=== PATIENT | male | born 1990 | race Caucasian/White ===

== ENCOUNTER 2019-04-25 15:44 | Inpatient (IN) | payer OTHER ==
[~2019-04-25] VITALS: Ht 177.8 cm; Wt 85.5 kg
[~2019-04-25 15:44] MED LIST: ZOFRAN ODT4 MG SL
[2019-04-25 17:18] LABS: HEMATOCRIT 47.8 % (39.0-50.0); HEMOGLOBIN 16.1 g/dl (14.0-18.0); IMMATURE GRANULOCYTES 0.4 % (0.0-5.0); MEAN CELL VOLUME 86.8 fL CALC (80.0-100.0); MEAN CORPUSCULAR HGB 29.2 pG CALC (26.0-32.0); MEAN CORPUSCULAR HGB CONC 33.7 g/L CALC (32.0-36.0); NEUT# 12.53 thou/uL (1.82-7.42); RED BLOOD COUNT 5.51 mill/uL (4.70-6.10); RED CELL DISTRI WIDTH 11.8 % (11.5-15.5)
[2019-04-25 17:36] LABS: ALBUMIN 4.9 g/dL (3.2-5.0); ALKALINE PHOSPHATASE 74 u/l (38-126); BUN 37 mg/dL (9-20); BUN/CREATININE RATIO 32 (12-20 (CALC)); CHLORIDE 94 mmol/l (95-108); CREATININE 1.1 mg/dL (0.7-1.3); ETHYL ALCOHOL 0 mg/dl (0-30); GFR > 60 ML/MIN (>=60 (CALC)); GFR FOR AFR.AMER. > 60 ML/MIN (>=60 (CALC)); POTASSIUM 4.7 mmol/l (3.5-5.1); TOTAL PROTEIN 8.3 g/dL (6.3-8.2)
[2019-04-25 17:37] LABS: ANION GAP 22 (6-22 (CALC)); BILIRUBIN, TOTAL 2.6 mg/dL (0.0-1.4); CARBON DIOXIDE 21 mmol/l (22-30); SGOT/AST 650 u/l (17-59); SODIUM 132 mmol/l (137-146)
[2019-04-25 21:04] LABS: URINE BILIRUBIN - DIPSTICK NEGATIVE (NEGATIVE); URINE BLOOD DIPSTICK MODERATE (NEGATIVE); URINE COLOR YELLOW; URINE GLUCOSE - DIPSTICK NEGATIVE (NEGATIVE); URINE KETONE 15 mg/dL (NEGATIVE); URINE LEUK ESTERASE NEGATIVE (NEGATIVE); URINE NITRITE - DIPSTICK NEGATIVE (Negative); URINE PH 5.5 (4.5-8.0); URINE PROTEIN - DIPSTICK NEGATIVE (NEG-TRACE); URINE UROBILINOGEN - DIPSTICK 0.2 E.U./dL (0.2)
[2019-04-25 21:07] LABS: BARBITURATES NEGATIVE (NEGATIVE); COCAINE NEGATIVE (NEGATIVE); METHADONE NEGATIVE (NEGATIVE); OXCYCODONE NEGATIVE (NEGATIVE); TETRAHYDROCANNABIONOL NEGATIVE (NEGATIVE); TRICYLIC ANTIDEPRESSANTS NEGATIVE (NEGATIVE)
[2019-04-25 21:14] LABS: URINE RBC 0-2 RBC/hpf (0-5)
[2019-04-25 23:00] VITALS: BP 119/77
[2019-04-25 23:15] VITALS: BP 140/83
[2019-04-25 23:30] VITALS: BP 128/75
[2019-04-25 23:45] VITALS: BP 119/67
[2019-04-26] VITALS (11 sets, daily range): BP systolic 101–129; BP diastolic 56–77
[2019-04-26 05:35] LABS: IMMATURE GRANULOCYTES 0.3 % (0.0-5.0); MEAN CELL VOLUME 89.1 fL CALC (80.0-100.0); MEAN CORPUSCULAR HGB 29.8 pG CALC (26.0-32.0); MEAN CORPUSCULAR HGB CONC 33.4 g/L CALC (32.0-36.0); NEUT# 4.7 thou/uL (1.82-7.42); RED BLOOD COUNT 4.03 mill/uL (4.70-6.10); RED CELL DISTRI WIDTH 12.1 % (11.5-15.5)
[2019-04-26 05:47] LABS: HEMATOCRIT 35.9 % (39.0-50.0)
[2019-04-27] VITALS (10 sets, daily range): BP systolic 111–136; BP diastolic 61–85
[2019-04-27 06:10] LABS: HEMATOCRIT 37.9 % (39.0-50.0); HEMOGLOBIN 12.3 g/dl (14.0-18.0); MEAN CELL VOLUME 91.1 fL CALC (80.0-100.0); MEAN CORPUSCULAR HGB 29.6 pG CALC (26.0-32.0); MEAN CORPUSCULAR HGB CONC 32.5 g/L CALC (32.0-36.0); RED BLOOD COUNT 4.16 mill/uL (4.70-6.10); RED CELL DISTRI WIDTH 12.2 % (11.5-15.5)
[2019-04-27 06:34] LABS: ANION GAP 9 (6-22 (CALC)); BUN 10 mg/dL (9-20); BUN/CREATININE RATIO 19 (12-20 (CALC)); CARBON DIOXIDE 25 mmol/l (22-30); CHLORIDE 105 mmol/l (95-108); CREATININE 0.5 mg/dL (0.7-1.3); GFR > 60 ML/MIN (>=60 (CALC)); GFR FOR AFR.AMER. > 60 ML/MIN (>=60 (CALC)); POTASSIUM 4.1 mmol/l (3.5-5.1); SODIUM 135 mmol/l (137-146)
[2019-04-28] VITALS (10 sets, daily range): BP systolic 109–134; BP diastolic 70–88
[2019-04-28 05:40] LABS: ANION GAP 8 (6-22 (CALC)); BUN 10 mg/dL (9-20); BUN/CREATININE RATIO 15 (12-20 (CALC)); CARBON DIOXIDE 28 mmol/l (22-30); CHLORIDE 105 mmol/l (95-108); CREATININE 0.6 mg/dL (0.7-1.3); GFR > 60 ML/MIN (>=60 (CALC)); GFR FOR AFR.AMER. > 60 ML/MIN (>=60 (CALC)); POTASSIUM 4.5 mmol/l (3.5-5.1); SODIUM 137 mmol/l (137-146)
[2019-04-28 05:50] LABS: CPK 2174 u/l (52-200)
[2019-04-29] VITALS (8 sets, daily range): BP systolic 96–143; BP diastolic 58–93
[2019-04-30] VITALS (11 sets, daily range): BP systolic 119–151; BP diastolic 63–95
[2019-04-30 05:30] LABS: MEAN CORPUSCULAR HGB 29.1 pG CALC (26.0-32.0); MEAN CORPUSCULAR HGB CONC 33.8 g/L CALC (32.0-36.0); RED BLOOD COUNT 5.16 mill/uL (4.70-6.10); RED CELL DISTRI WIDTH 11.7 % (11.5-15.5)
[2019-04-30 05:38] LABS: HEMATOCRIT 44.4 % (39.0-50.0)
[2019-04-30 05:46] LABS: ANION GAP 12 (6-22 (CALC)); BUN 11 mg/dL (9-20); BUN/CREATININE RATIO 14 (12-20 (CALC)); CARBON DIOXIDE 28 mmol/l (22-30); CHLORIDE 100 mmol/l (95-108); CPK 545 u/l (52-200); CREATININE 0.7 mg/dL (0.7-1.3); GFR > 60 ML/MIN (>=60 (CALC)); GFR FOR AFR.AMER. > 60 ML/MIN (>=60 (CALC)); SODIUM 136 mmol/l (137-146)
== END 2019-04-30 19:32 | DRG 885 ==
LOC: ED 15:44 → ED-I 21:12 → ED 21:34 → ICU 21:35
PROVIDERS: Family Medicine; Internal Medicine; ADMIT Internal Medicine; ATTEND Internal Medicine
DX: F23 Brief psychotic disorder (principal); M62.82 Rhabdomyolysis; S91.312A Laceration without foreign body, left foot, initial encounter; S91.311A Laceration without foreign body, right foot, initial encounter; F32.9 Major depressive disorder, single episode, unspecified; R10.11 Right upper quadrant pain; R10.12 Left upper quadrant pain; X58.XXXA Exposure to other specified factors, initial encounter
CPT/HCPCS: Q9967